=== PATIENT | female | born 1980 | race Two or more races ===

== ENCOUNTER 2021-01-24 10:24 | Emergency (ER) | payer BC ==
[~2021-01-24] VITALS: Ht 170.2 cm; Wt 71.7 kg
== END 2021-01-24 12:20 | disposition home or self-care (01) ==
LOC: ER 10:24
DX: S61.221A Laceration with foreign body of left index finger without damage to nail, initial encounter (principal); S61.223A Laceration with foreign body of left middle finger without damage to nail, initial encounter; W25.XXXA Contact with sharp glass, initial encounter; Y93.G1 Activity, food preparation and clean up; Y92.010 Kitchen of single-family (private) house as the place of occurrence of the external cause; Y99.8 Other external cause status